=== PATIENT | male | born 1970 | race Caucasian/White ===

== ENCOUNTER 2022-09-22 19:40 | Emergency (ER) | payer OTHER ==
[~2022-09-22] VITALS: Ht 190.5 cm; Wt 99.8 kg
[2022-09-22] MEDS ORDERED: KETOROLAC TROMETHAMINE 60 MG/2 ML VIAL IM ONE (20:00)
[2022-09-22] MEDS ORDERED: ULTRAM 50MG50 MG PO ×2 (20:28→20:30)
[2022-09-22] MEDS ORDERED: PREDNISONE20 MG PO ×2 (20:28→20:30)
[2022-09-22 20:52] VITALS: BP 151/85
== END 2022-09-22 20:53 | disposition home or self-care (01) ==
LOC: ER 19:54
DX: M25.572 Pain in left ankle and joints of left foot (principal)
CPT/HCPCS: 73610; 99283; J1885